=== PATIENT | female | born 1985 | race Two or more races ===

== ENCOUNTER 2017-09-26 10:20 | Emergency (ER) | payer MEDICAID ==
[~2017-09-26] VITALS: Ht 172.7 cm; Wt 117.0 kg
[~2017-09-26 10:20] MED LIST: ALBU0.63 NEB; LISI2.5T PO; METF500T4 PO
[2017-09-26] MEDS ORDERED: SODIUM CHLORIDE FLUSH 10ML SYR IVF ONE (11:00)
[2017-09-26 11:23] LABS: BASOPHILS # (AUTO) 0.03 x10^3/uL (0-0.1); BASOPHILS % (AUTO) 0 % (0-1); EOSINOPHILS # (AUTO) 0.06 x10^3/uL (0-0.4); EOSINOPHILS % (AUTO) 1 % (1-7); LYMPHOCYTES # (AUTO) 1.22 x10^3/uL (1-3.4); LYMPHOCYTES % (AUTO) 11 % (22-44); MD NO; MEAN CORPUSCULAR HEMOGLOBIN 28.9 pg (27.0-34.8); MEAN CORPUSCULAR HGB CONC 33.8 g/dL (32.4-35.8); MEAN CORPUSCULAR VOLUME 85.7 fL (80-100); MEAN PLATELET VOLUME 10.8 fL (7.4-10.4); MONOCYTES # (AUTO) 0.97 x10^3/uL (0.2-0.8); MONOCYTES % (AUTO) 9 % (2-9); NEUTROPHILS # (AUTO) 8.41 x10^3/uL (1.8-6.8); NEUTROPHILS % (AUTO) 79 % (42-75); PLATELET COUNT 189 x10^3/uL (130-400); RED BLOOD COUNT 5.17 x10^6/uL (3.82-5.3)
[2017-09-26 11:32] LABS: ALANINE AMINOTRANSFERASE 129 U/L (12-78); ALBUMIN 3.6 g/dL (3.4-5.0); ANION GAP 13 mmol/L (5-15); CALCIUM 8.5 mg/dL (8.5-10.1); CHLORIDE 98 mmol/L (98-107); CREATININE 0.87 mg/dL (0.55-1.02)
[2017-09-26 11:36] LABS: ALKALINE PHOSPHATASE 96 U/L (45-117); BILIRUBIN,TOTAL 0.4 mg/dL (0.2-1.0); TOTAL PROTEIN 8.4 g/dL (6.4-8.2)
[2017-09-26] MEDS ORDERED: LISI-167 PO (11:49)
[2017-09-26 11:54] LABS: MICROSCOPIC AUTO
[2017-09-26 12:15] LABS: CULTURE INDICATED? YES
[2017-09-26] MEDS ORDERED: ONDANSETRON ODT 4 MG ONE (12:21)
[2017-09-26] MEDS ORDERED: MORPHINE SULFATE 4 MG/ML, 1ML ONE (12:21)
[2017-09-26] MEDS ORDERED: MORPHINE SULFATE 4 MG/ML, 1ML IVPush PRN (12:30)
[2017-09-26] MEDS ORDERED: LIDOCAINE/PRILOCAINE CRM W/TEG 5GM TP ONE (12:30)
[2017-09-26] MEDS ORDERED: SODIUM CHLORIDE 0.9% 1,000ML IVBOLUS ONE (12:30)
[2017-09-26] MEDS ORDERED: ONDANSETRON ODT 4 MG PO ONE (12:30)
[2017-09-26] MEDS ORDERED: INSULIN REGULAR 100 UNITS/ML, 3ML VIAL SQ-INSULIN ONE (14:00)
[2017-09-26] MEDS ORDERED: INSULIN REGULAR 100 UNITS/ML, 3ML VIAL ONE (14:05)
[2017-09-26] MEDS ORDERED: OXYcodone/APAP 5/325MG TABLET PO ONE (15:00)
[2017-09-26] MEDS ORDERED: ACYCLOVIR 800 MG TABLET PO ONE (15:00)
[2017-09-26] MEDS ORDERED: OXYcodone/APAP 5/325MG TABLET ONE (15:21)
[2017-09-26 18:31] VITALS: BP 138/83
== END 2017-09-26 18:33 | disposition home or self-care (01) ==
LOC: ED 14:50
DX: A60.04 Herpesviral vulvovaginitis (principal); I10 Essential (primary) hypertension; E11.9 Type 2 diabetes mellitus without complications
CPT/HCPCS: 36415; 80053; 81001; 82962; 84703; 85025; 86592; 86695; 86696; 87086; 87147; 87255; 87806; 96372; 96374; 99284; J7030; Q0162; 96361; G0475

== ENCOUNTER 2017-09-27 21:33 | Inpatient (IN) | payer MEDICAID ==
[~2017-09-27] VITALS: Ht 172.7 cm; Wt 119.8 kg
[~2017-09-27 21:33] MED LIST changes: +LISI-167 PO
[2017-09-27] MEDS ORDERED: ONDANSETRON ODT 4 MG PO ONE (22:00)
[2017-09-27] MEDS ORDERED: ONDANSETRON ODT 4 MG ONE (22:03)
[2017-09-27] MEDS ORDERED: MORPHINE SULFATE 4 MG/ML, 1ML ONE (22:03)
[2017-09-27] MEDS: MORPHINE SULFATE 4 MG/ML, 1ML IVPush PRN ×2 (22:06→23:22)
[2017-09-27 22:18] LABS: BASOPHILS # (AUTO) 0.07 x10^3/uL (0-0.1); BASOPHILS % (AUTO) 1 % (0-1); EOSINOPHILS % (AUTO) 1 % (1-7); LYMPHOCYTES # (AUTO) 2.27 x10^3/uL (1-3.4); LYMPHOCYTES % (AUTO) 20 % (22-44); MD NO; MEAN CORPUSCULAR HEMOGLOBIN 28.2 pg (27.0-34.8); MEAN CORPUSCULAR HGB CONC 33.3 g/dL (32.4-35.8); MEAN CORPUSCULAR VOLUME 84.9 fL (80-100); MEAN PLATELET VOLUME 10.3 fL (7.4-10.4); MONOCYTES # (AUTO) 1.34 x10^3/uL (0.2-0.8); MONOCYTES % (AUTO) 12 % (2-9); NEUTROPHILS # (AUTO) 7.58 x10^3/uL (1.8-6.8); NEUTROPHILS % (AUTO) 67 % (42-75); PLATELET COUNT 171 x10^3/uL (130-400); RED CELL DISTRIBUTION WIDTH 12.5 % (9.6-15.2)
[2017-09-27 22:28] LABS: ALBUMIN 3.2 g/dL (3.4-5.0); ANION GAP 13 mmol/L (5-15); CALCIUM 8.9 mg/dL (8.5-10.1); CHLORIDE 102 mmol/L (98-107); CREATININE 0.65 mg/dL (0.55-1.02)
[2017-09-27] MEDS ORDERED: LIDOCAINE 4% CREAM 5GM TUBE TP ONE (22:30)
[2017-09-28] MEDS ORDERED: ACETAMINOPHEN 325 MG TABLET PO PRN
[2017-09-28] MEDS ORDERED: hydrALAzine 20 MG/ML, 1ML IVPush PRN
[2017-09-28] MEDS ORDERED: ONDANSETRON ODT 4 MG PO PRN
[2017-09-28 01:45] VITALS: BP 118/81
[2017-09-28] MEDS: ACYCLOVIR IV SCH ×3 (01:54→18:03)
[2017-09-28] MEDS: HYDROcodone/APAP 5/325 TABLET PO PRN ×4 (01:54→19:32)
[2017-09-28] MEDS: SODIUM CHLORIDE 0.9% IV SCH ×3 (01:54→18:03)
[2017-09-28] MEDS: INSULIN LISPRO 100 UNITS/ML, PEN SQ-INSULIN SCH ×5 (04:09→22:18)
[2017-09-28] MEDS: LIDOCAINE 4% CREAM 5GM TUBE TP PRN ×5 (04:10→22:13)
[2017-09-28 04:35] VITALS: BP 118/81
[2017-09-28 06:40] VITALS: BP 126/81
[2017-09-28] MEDS: LISINOPRIL 10 MG TABLET PO SCH (08:46)
[2017-09-28] MEDS: metFORMIN 500 MG TABLET PO SCH ×2 (08:46→22:13)
[2017-09-28] MEDS ORDERED: MORPHINE SULFATE 4 MG/ML, 1ML IVPush PRN (10:00)
[2017-09-28 10:50] LABS: MICROSCOPIC INDICATED
[2017-09-28] MEDS ORDERED: LORazepam 2 MG/ML, 1ML IVPush ONE (11:30)
[2017-09-28] MEDS ORDERED: morphine SULFATE 10 MG/ML, 1ML IVPush ONE (11:30)
[2017-09-28] MEDS: SODIUM CHLORIDE 0.9% 1,000 ML IV SCH ×2 (12:25→22:38)
[2017-09-28 12:55] VITALS: BP 120/73
[2017-09-28 13:49] LABS: HCG UR SG 1.028 (1.003-1.030)
[2017-09-28] MEDS: MORPHINE SULFATE 4 MG/ML, 1ML IVPush PRN ×2 (16:57→23:05)
[2017-09-28 18:56] VITALS: BP 128/83
[2017-09-29] MEDS: ACYCLOVIR IV SCH ×3 (00:57→18:13)
[2017-09-29] MEDS: SODIUM CHLORIDE 0.9% IV SCH ×3 (00:57→18:13)
[2017-09-29 02:01] VITALS: BP 131/85
[2017-09-29] MEDS: LIDOCAINE 4% CREAM 5GM TUBE TP PRN ×5 (02:15→23:11)
[2017-09-29] MEDS: HYDROcodone/APAP 5/325 TABLET PO PRN ×5 (02:24→22:18)
[2017-09-29 05:01] LABS: BASOPHILS # (AUTO) 0.04 x10^3/uL (0-0.1); BASOPHILS % (AUTO) 1 % (0-1); EOSINOPHILS # (AUTO) 0.16 x10^3/uL (0-0.4); EOSINOPHILS % (AUTO) 2 % (1-7); LYMPHOCYTES # (AUTO) 1.99 x10^3/uL (1-3.4); LYMPHOCYTES % (AUTO) 27 % (22-44); MD NO; MEAN CORPUSCULAR HEMOGLOBIN 28.8 pg (27.0-34.8); MEAN CORPUSCULAR HGB CONC 33.5 g/dL (32.4-35.8); MEAN CORPUSCULAR VOLUME 86.1 fL (80-100); MEAN PLATELET VOLUME 10.1 fL (7.4-10.4); MONOCYTES # (AUTO) 0.92 x10^3/uL (0.2-0.8); MONOCYTES % (AUTO) 12 % (2-9); NEUTROPHILS # (AUTO) 4.35 x10^3/uL (1.8-6.8); NEUTROPHILS % (AUTO) 58 % (42-75); PLATELET COUNT 174 x10^3/uL (130-400); RED BLOOD COUNT 4.43 x10^6/uL (3.82-5.3); RED CELL DISTRIBUTION WIDTH 12.6 % (9.6-15.2)
[2017-09-29 05:08] LABS: CHLORIDE 105 mmol/L (98-107)
[2017-09-29 05:16] LABS: ANION GAP 9 mmol/L (5-15); CREATININE 0.48 mg/dL (0.55-1.02)
[2017-09-29] MEDS: MORPHINE SULFATE 4 MG/ML, 1ML IVPush PRN ×5 (05:59→23:05)
[2017-09-29 07:15] VITALS: BP 135/84
[2017-09-29] MEDS: LISINOPRIL 10 MG TABLET PO SCH (08:14)
[2017-09-29] MEDS: metFORMIN 500 MG TABLET PO SCH (08:14)
[2017-09-29] MEDS: SODIUM CHLORIDE 0.9% 1,000 ML IV SCH ×2 (08:15→16:23)
[2017-09-29] MEDS: INSULIN LISPRO 100 UNITS/ML, PEN SQ-INSULIN SCH ×4 (08:18→20:10)
[2017-09-29] MEDS ORDERED: BISACODYL 10 MG SUPP PR PRN (11:30)
[2017-09-29] MEDS ORDERED: SENNA/DOCUSATE TABLET PO PRN (11:30)
[2017-09-29] MEDS ORDERED: POLYETHYLENE GLYCOL 17 GM PACKET ONE (11:32)
[2017-09-29] MEDS: POLYETHYLENE GLYCOL 17 GM PACKET PO PRN (11:53)
[2017-09-29 13:55] VITALS: BP 138/67
[2017-09-29] MEDS ORDERED: CEFTRIAXONE PMX 2GM/50ML 50 ML IV SCH (15:00)
[2017-09-29] MEDS ORDERED: CEFTRIAXONE 2 GM in DEXTROSE 5% 50 ML IV SCH (15:00)
[2017-09-29] MEDS: CEFTRIAXONE 2 GM in DEXTROSE 5% 50 ML IV SCH (16:23)
[2017-09-29 19:37] VITALS: BP 130/81
[2017-09-29 22:44] VITALS: BP 145/98
[2017-09-30 01:38] VITALS: BP 137/96
[2017-09-30] MEDS: SODIUM CHLORIDE 0.9% 1,000 ML IV SCH ×3 (02:02→20:29)
[2017-09-30] MEDS: HYDROcodone/APAP 5/325 TABLET PO PRN ×6 (02:05→23:22)
[2017-09-30] MEDS: SODIUM CHLORIDE 0.9% IV SCH ×3 (02:39→19:27)
[2017-09-30] MEDS: ACYCLOVIR IV SCH ×3 (02:39→19:27)
[2017-09-30] MEDS: MORPHINE SULFATE 4 MG/ML, 1ML IVPush PRN ×4 (03:56→23:59)
[2017-09-30] MEDS: LIDOCAINE 4% CREAM 5GM TUBE TP PRN ×7 (04:18→20:50)
[2017-09-30 06:19] LABS: ANION GAP 11 mmol/L (5-15); CALCIUM 8.1 mg/dL (8.5-10.1); CHLORIDE 106 mmol/L (98-107); CREATININE 0.49 mg/dL (0.55-1.02)
[2017-09-30 07:50] VITALS: BP 141/87
[2017-09-30] MEDS: INSULIN LISPRO 100 UNITS/ML, PEN SQ-INSULIN SCH ×4 (09:24→20:31)
[2017-09-30] MEDS: DOCUSATE 100 MG CAPSULE PO SCH (09:24)
[2017-09-30] MEDS: LISINOPRIL 10 MG TABLET PO SCH (09:24)
[2017-09-30] MEDS ORDERED: POTASSIUM CHLORIDE 20 MEQ TAB.ER.PRT PO ONE (12:00)
[2017-09-30 13:00] VITALS: BP 135/87
[2017-09-30] MEDS: CEFTRIAXONE 2 GM in DEXTROSE 5% 50 ML IV SCH (15:00)
[2017-09-30 20:12] VITALS: BP 136/88
[2017-10-01] MEDS: LIDOCAINE 4% CREAM 5GM TUBE TP PRN ×6 (01:13→23:01)
[2017-10-01 01:39] VITALS: BP 138/89
[2017-10-01] MEDS: ACYCLOVIR IV SCH ×3 (02:19→20:17)
[2017-10-01] MEDS: SODIUM CHLORIDE 0.9% IV SCH ×3 (02:19→20:17)
[2017-10-01] MEDS: MORPHINE SULFATE 4 MG/ML, 1ML IVPush PRN ×4 (02:23→23:00)
[2017-10-01] MEDS: HYDROcodone/APAP 5/325 TABLET PO PRN ×5 (04:28→21:53)
[2017-10-01 05:44] LABS: CHLORIDE 106 mmol/L (98-107)
[2017-10-01 06:04] LABS: ANION GAP 8 mmol/L (5-15); CALCIUM 8.9 mg/dL (8.5-10.1); CREATININE 0.58 mg/dL (0.55-1.02)
[2017-10-01] MEDS: INSULIN LISPRO 100 UNITS/ML, PEN SQ-INSULIN SCH ×4 (07:00→20:36)
[2017-10-01 08:16] VITALS: BP 141/94
[2017-10-01] MEDS: LISINOPRIL 10 MG TABLET PO SCH (08:20)
[2017-10-01] MEDS: DOCUSATE 100 MG CAPSULE PO SCH (08:20)
[2017-10-01] MEDS: CEFTRIAXONE 2 GM in DEXTROSE 5% 50 ML IV SCH (17:01)
[2017-10-01] MEDS: SODIUM CHLORIDE 0.9% 1,000 ML IV SCH (17:01)
[2017-10-01 17:18] VITALS: BP 144/93
[2017-10-01 19:36] VITALS: BP 129/85
[2017-10-02 02:27] VITALS: BP 129/89
[2017-10-02] MEDS: HYDROcodone/APAP 5/325 TABLET PO PRN ×5 (02:36→20:41)
[2017-10-02] MEDS: LIDOCAINE 4% CREAM 5GM TUBE TP PRN ×7 (02:41→22:00)
[2017-10-02] MEDS: SODIUM CHLORIDE 0.9% 1,000 ML IV SCH ×4 (02:41→23:11)
[2017-10-02] MEDS: ACYCLOVIR IV SCH ×2 (05:19→12:20)
[2017-10-02] MEDS: SODIUM CHLORIDE 0.9% IV SCH ×2 (05:19→12:20)
[2017-10-02] MEDS: MORPHINE SULFATE 4 MG/ML, 1ML IVPush PRN (05:23)
[2017-10-02 05:47] LABS: ANION GAP 9 mmol/L (5-15); CALCIUM 8.2 mg/dL (8.5-10.1); CHLORIDE 104 mmol/L (98-107); CREATININE 0.52 mg/dL (0.55-1.02)
[2017-10-02 05:48] LABS: BASOPHILS # (AUTO) 0.04 x10^3/uL (0-0.1); BASOPHILS % (AUTO) 1 % (0-1); EOSINOPHILS % (AUTO) 4 % (1-7); LYMPHOCYTES # (AUTO) 2.51 x10^3/uL (1-3.4); LYMPHOCYTES % (AUTO) 31 % (22-44); MD NO; MEAN CORPUSCULAR HEMOGLOBIN 29.1 pg (27.0-34.8); MEAN CORPUSCULAR HGB CONC 33.5 g/dL (32.4-35.8); MEAN CORPUSCULAR VOLUME 86.8 fL (80-100); MEAN PLATELET VOLUME 9.5 fL (7.4-10.4); MONOCYTES # (AUTO) 0.88 x10^3/uL (0.2-0.8); MONOCYTES % (AUTO) 11 % (2-9); NEUTROPHILS % (AUTO) 55 % (42-75); PLATELET COUNT 232 x10^3/uL (130-400); RED BLOOD COUNT 4.67 x10^6/uL (3.82-5.3); RED CELL DISTRIBUTION WIDTH 12.6 % (9.6-15.2)
[2017-10-02 07:42] VITALS: BP 131/101
[2017-10-02] MEDS: INSULIN LISPRO 100 UNITS/ML, PEN SQ-INSULIN SCH ×4 (07:50→20:49)
[2017-10-02] MEDS: DOCUSATE 100 MG CAPSULE PO SCH (07:50)
[2017-10-02] MEDS: LISINOPRIL 10 MG TABLET PO SCH (07:51)
[2017-10-02 14:39] VITALS: BP 139/94
[2017-10-02] MEDS: CEFTRIAXONE 2 GM in DEXTROSE 5% 50 ML IV SCH (16:45)
[2017-10-02] MEDS: POLYETHYLENE GLYCOL 17 GM PACKET PO PRN (16:51)
[2017-10-02] MEDS ORDERED: PNEUMOCOCCAL 23 VACCINE IM-VACC ONE (18:00)
[2017-10-02 19:47] VITALS: BP 139/93
[2017-10-02] MEDS: ACYCLOVIR 200 MG CAPSULE PO SCH (20:42)
[2017-10-03] MEDS: HYDROcodone/APAP 5/325 TABLET PO PRN ×3 (00:42→11:16)
[2017-10-03] MEDS: LIDOCAINE 4% CREAM 5GM TUBE TP PRN ×3 (00:42→11:22)
[2017-10-03 02:36] VITALS: BP 146/93
[2017-10-03] MEDS: MORPHINE SULFATE 4 MG/ML, 1ML IVPush PRN (03:48)
[2017-10-03 04:40] LABS: BASOPHILS # (AUTO) 0.05 x10^3/uL (0-0.1); BASOPHILS % (AUTO) 1 % (0-1); EOSINOPHILS # (AUTO) 0.29 x10^3/uL (0-0.4); EOSINOPHILS % (AUTO) 4 % (1-7); LYMPHOCYTES # (AUTO) 2.54 x10^3/uL (1-3.4); LYMPHOCYTES % (AUTO) 32 % (22-44); MD NO; MEAN CORPUSCULAR HEMOGLOBIN 28.4 pg (27.0-34.8); MEAN CORPUSCULAR HGB CONC 33.2 g/dL (32.4-35.8); MEAN CORPUSCULAR VOLUME 85.4 fL (80-100); MEAN PLATELET VOLUME 9.5 fL (7.4-10.4); MONOCYTES # (AUTO) 0.74 x10^3/uL (0.2-0.8); MONOCYTES % (AUTO) 10 % (2-9); NEUTROPHILS # (AUTO) 4.23 x10^3/uL (1.8-6.8); NEUTROPHILS % (AUTO) 54 % (42-75); PLATELET COUNT 262 x10^3/uL (130-400); RED BLOOD COUNT 4.65 x10^6/uL (3.82-5.3); RED CELL DISTRIBUTION WIDTH 12.6 % (9.6-15.2)
[2017-10-03 04:53] LABS: ANION GAP 6 mmol/L (5-15); CALCIUM 8.9 mg/dL (8.5-10.1); CHLORIDE 105 mmol/L (98-107)
[2017-10-03 04:55] LABS: CREATININE 0.57 mg/dL (0.55-1.02)
[2017-10-03] MEDS: INSULIN LISPRO 100 UNITS/ML, PEN SQ-INSULIN SCH ×2 (07:00→11:13)
[2017-10-03] MEDS: LISINOPRIL 10 MG TABLET PO SCH (07:23)
[2017-10-03] MEDS: DOCUSATE 100 MG CAPSULE PO SCH (07:23)
[2017-10-03] MEDS: ACYCLOVIR 200 MG CAPSULE PO SCH (07:24)
[2017-10-03] MEDS: SODIUM CHLORIDE 0.9% 1,000 ML IV SCH (07:25)
[2017-10-03 07:55] VITALS: BP 140/103
[2017-10-03] MEDS ORDERED: LIDO5CRE19 TP ×2 (08:34→08:53)
[2017-10-03] MEDS ORDERED: HYDR-3240 PO (08:34)
[2017-10-03] MEDS ORDERED: ACYC-113 PO ×2 (08:34→08:53)
[2017-10-03] MEDS: CEFTRIAXONE 2 GM in DEXTROSE 5% 50 ML IV SCH (11:06)
[2017-10-03] MEDS: POLYETHYLENE GLYCOL 17 GM PACKET PO PRN (11:06)
== END 2017-10-03 13:15 | disposition home or self-care (01) | DRG 758 ==
LOC: ED 22:30 → EDIP 23:46 → 3NE 09-28 00:39 → DCLOUNGE 10-03 12:54
PROVIDERS: ADMIT Family Medicine; ATTEND Family Medicine
DX: A60.04 Herpesviral vulvovaginitis (principal); Z68.41 Body mass index [BMI] 40.0-44.9, adult; E11.65 Type 2 diabetes mellitus with hyperglycemia; N39.0 Urinary tract infection, site not specified; E44.1 Mild protein-calorie malnutrition; E66.01 Morbid (severe) obesity due to excess calories; I10 Essential (primary) hypertension; R33.9 Retention of urine, unspecified; Z83.3 Family history of diabetes mellitus; R31.9 Hematuria, unspecified
CPT/HCPCS: 36415; 80048; 81001; 81025; 82040; 82962; 85025; 87491; 87591; 87806; 90732; 96374; 96376; J0133; J0696; Q0162; G0475; J1815; J2060; J2270; J7030

== ENCOUNTER 2018-08-02 11:50 | Emergency (ER) | payer MEDICAID ==
[~2018-08-02] VITALS: Ht 172.7 cm; Wt 119.4 kg
[~2018-08-02 11:50] MED LIST changes: +ACYC-113 PO; +HYDR-3240 PO; +LIDO5CRE19 TP; +METF500T17 PO; -METF500T4 PO
--- NOTE | 2018-08-02 12:51 | NUR ---
PT PRESENTS WITH LEFT LEG PAIN/TINGLING FOR PAST FEW DAYS, HAS HX SAME AFTER INJURY MANY YEARS AGO. PT DENIES BOWEL/BLADDER INCONTINENCE. PT STATES SHE RECENTLY SLEPT ON AN AIR MATTRESS BEFORE SX ONSET, DENIES ANY INJURY. CMS INTACT TO LEFT LE, 3+ LEFT DORSALIS PULSE. AWAITING ORDERS AND DISPO AT THIS TIME.
[2018-08-02] MEDS ORDERED: KETOROLAC 30 MG/1 ML IM ONE (13:30)
[2018-08-02] MEDS ORDERED: KETOROLAC 30 MG/1 ML ONE (14:13)
[2018-08-02 15:01] VITALS: BP 118/81
--- NOTE | 2018-08-02 15:02 | NUR ---
pt reports pain improved s/p toradol, vs reassessed, vss. pt a&o, resps even and unlabored. awaiting further orders at this time.
--- NOTE | 2018-08-02 15:33 | NUR ---
pt given dc instructions and script. pt a&o, resps even and unlabored. pt educated regarding dc rx for medrol dosepack, robaxan and naproxen. pt amb to dc desk with steady gait, nadn at dc.
== END 2018-08-02 15:34 | disposition home or self-care (01) ==
LOC: ED 15:27
DX: M54.42 Lumbago with sciatica, left side (principal); E11.9 Type 2 diabetes mellitus without complications
CPT/HCPCS: 96372; 99283; J1885